=== PATIENT | male | born 1990 | race Caucasian/White ===

== ENCOUNTER 2023-06-02 23:25 | Emergency (ER) | payer MEDICAID ==
[~2023-06-02] VITALS: Ht 180.3 cm; Wt 64.0 kg
[2023-06-02 23:41] VITALS: BP 112/66; PULSE 96; RESP 18; TEMP 98.1; O2SAT 95
[2023-06-03] MEDS ORDERED: LORAZEPAM 0.5MG TABLET PO ONE (01:45)
== END 2023-06-03 02:24 | disposition home or self-care (01) ==
LOC: ER 23:25
DX: F41.9 Anxiety disorder, unspecified (principal); F32.9 Major depressive disorder, single episode, unspecified
CPT/HCPCS: 93005; 99283